=== PATIENT | female | born 1990 | race Caucasian/White ===

== ENCOUNTER 2019-04-04 17:59 | Emergency (ER) | payer MEDICAID, OTHER ==
[~2019-04-04] VITALS: Ht 157.5 cm; Wt 65.8 kg
[~2019-04-04 17:59] MED LIST: ALBU0.0912 IH
[2019-04-04 18:20] VITALS: BP 139/83
[2019-04-04] MEDS: IBUPROFEN 600 MG TAB PO ONE (19:47)
[2019-04-05 00:42] VITALS: BP 119/78
[2019-04-06 06:07] LABS: CHLAMYDIA TRACHOMATIS AMP DNA Negative (Negative)
== END 2019-04-05 00:42 | disposition home or self-care (01) ==
LOC: MED 17:59
DX: R10.2 Pelvic and perineal pain (principal); J45.909 Unspecified asthma, uncomplicated; Z91.018 Allergy to other foods; Z91.09 Other allergy status, other than to drugs and biological substances
CPT/HCPCS: 36415; 72192; 76830; 81002; 81025; 87491; 99284; Q0092